=== PATIENT | female | born 1940 | race Caucasian/White ===

== ENCOUNTER → 2017-07-03 | Outpatient (CLI) | payer MEDICARE, OTHER ==
[~2017-07-03] MED LIST: ASCO500 PO; ATOR10 PO; AZIT250 PO; BACL10 PO; BENZ100A PO; CHOL10002 PO; COLLAGEN PLUS; CYAN100 PO; CYAN1000 PO; ENOX80I SQ; ERGO400 PO; ESCI10 PO; FISH1000 PO; FLAX PO; GLIP2.5ER; GLIP5 PO; HYDACE5 PO; IBUP200; LISI10 PO; LISI5 PO; LOSA25 PO; METF500 PO; METF500C PO; METO100ER PO; METO25ER; METO50 PO; NAPR500EC PO; Naproxen375 MG PO; OXYACE5T PO; OXYGEN 2L; TOCO400 PO; UBID100 PO; WARF1 PO; WARF10 PO; WARF4 PO; [UNRECOGNIZED DRUG - OTHER]; [UNRECOGNIZED DRUG - OTHER]
== END ==
LOC: LAB SHORT 15:18 → OLS 15:18
DX: I48.0 Paroxysmal atrial fibrillation (principal)
CPT/HCPCS: 36416; 85610

== ENCOUNTER → 2018-06-04 | Outpatient (CLI) | payer MEDICARE, OTHER ==
[2018-06-05 09:15] LABS: Source, Urine Clean Catch
[2018-06-05 12:38] LABS: Bilirubin, Urine Neg (Neg); Blood, Urine 2+ (Neg); Glucose Qualitative, Urine Neg (Neg); Ketones, Urine Neg (Neg); Leukocyte Esterase, Urine 3+ (Neg); Nitrite, Urine Pos (Neg); Protein, Urine 2+ (Neg); Urobilinogen, Urine NORM (Normal)
[2018-06-05 13:03] LABS: Appearance, Urine Clear (Clear); Color, Urine Yellow (P-Yellow)
[2018-06-05 13:09] LABS: Bacteria Mod /hpf; Squamous Epithelial Cells Mod /hpf (Few); Transitional Epithelial Cells Rare /hpf (0-Rare)
[2018-06-05 13:11] LABS: White Blood Cells, Urine 25-50 /hpf (0-5)
== END | disposition home or self-care (01) ==
LOC: LAB 17:59 → LAB SHORT 17:59 → LAB FUT 07-22 17:40
PROVIDERS: Family Medicine
DX: N39.0 Urinary tract infection, site not specified (principal); R10.2 Pelvic and perineal pain
CPT/HCPCS: 81001; 87077; 87086; 87186

== ENCOUNTER → 2018-08-25 | Outpatient (CLI) | payer MEDICARE, OTHER ==
[2018-08-25 15:38] LABS: Source, Urine Clean Catch
[2018-08-25 17:29] LABS: Bilirubin, Urine Neg (Neg); Blood, Urine 2+ (Neg); Glucose Qualitative, Urine 2+ (Neg); Ketones, Urine Neg (Neg); Leukocyte Esterase, Urine 3+ (Neg); Nitrite, Urine Pos (Neg); Protein, Urine 2+ (Neg); Urobilinogen, Urine NORM (Normal)
[2018-08-25 17:41] LABS: Appearance, Urine Cloudy (Clear); Color, Urine Yellow (P-Yellow)
[2018-08-25 17:42] LABS: White Blood Cells, Urine TNTC /hpf (0-5)
[2018-08-25 17:43] LABS: Bacteria Many /hpf; Squamous Epithelial Cells Mod /hpf (Few)
== END | disposition home or self-care (01) ==
LOC: LAB SHORT 15:38 → LAB 15:38 → LAB FUT 08-22 14:55 → EDSTATUS 08-22 14:55
PROVIDERS: Family Medicine
DX: N39.0 Urinary tract infection, site not specified (principal)
CPT/HCPCS: 81001

== ENCOUNTER 2018-10-05 14:39 | Emergency (ER) | payer MEDICARE, OTHER ==
[~2018-10-05] VITALS: Ht 162.6 cm; Wt 86.2 kg
[2018-10-05 15:19] LABS: BASOPHILS ABSOLUTE AUTO 0.05 K/mm3 (0.00-0.23); BASOPHILS PERCENT AUTO 1 % (0-2); EOSINOPHILS ABSOLUTE AUTO 0.17 K/mm3 (0.00-0.68); EOSINOPHILS PERCENT AUTO 2 % (0-6); Hematocrit 42.8 % (33.0-51.0); Hemoglobin 14.1 g/dL (11.5-16.0); IMMATURE GRAN ABSOLUTE AUTO 0.06 K/mm3 (0.00-0.10); IMMATURE GRAN PERCENT AUTO 1 % (0-1); LYMPHOCYTES ABSOLUTE AUTO 3.01 K/mm3 (0.84-5.20); LYMPHOCYTES PERCENT AUTO 30 % (21-46); MONOCYTES ABSOLUTE AUTO 0.76 K/mm3 (0.16-1.47); MONOCYTES PERCENT AUTO 8 % (4-13); Mean Corpuscular HGB Conc 32.9 g/dL (31.5-36.5); Mean Corpuscular Volume 88 fL (80-100); Mean Platelet Volume 10.7 fL (9.1-12.4); NEUTROPHILS ABSOLUTE AUTO 5.91 K/mm3 (1.96-9.15); NEUTROPHILS PERCENT AUTO 59 % (41-73); Platelet Count 264 K/mm3 (150-400); RDW Coefficient Variation 13.5 % (11.7-14.2); RDW Standard Deviation 43.8 fL (35.1-46.3); Red Blood Cell Count 4.86 M/mm3 (3.80-5.20); White Blood Cell Count 9.96 K/mm3 (4.00-11.30)
[2018-10-05 15:35] LABS: Alanine Aminotransfer (ALT/SGP 36 U/L (12-78); Albumin, Blood 3.7 g/dL (3.4-5.0); Albumin/Globulin Ratio 0.8 (0.8-1.8); Alk Phos 96 U/L (50-136); Anion Gap 8 mmol/L (6-16); Aspartate Aminotrans (AST/SGOT 29 U/L (12-37); Bilirubin, Total 0.5 mg/dL (0.1-1.0); Blood Urea Nitrogen 10 mg/dL (8-24); Bun/Creatinine Ratio 15.9 (12.0-20.0); CO2, Blood 25 mmol/L (21-32); Calcium, Blood 9.3 mg/dL (8.5-10.1); Chloride, Blood 105 mmol/L (98-108); Creatinine, Blood 0.63 mg/dL (0.40-1.00); Globulin, Blood 4.4 g/dL (2.2-4.0); Glomerular Filtration Rate >60 (60-); Glucose, Blood 134 mg/dL (70-99); Potassium, Blood 4.2 mmol/L (3.5-5.5); Sodium, Blood 138 mmol/L (136-145); Total Protein, Blood 8.1 g/dL (6.4-8.2)
[2018-10-05 15:39] LABS: Troponin I <0.015 ng/mL (0.000-0.040)
[2018-10-05 16:16] LABS: Source, Urine Clean Catch
[2018-10-05 16:22] LABS: Bilirubin, Urine Neg (Neg); Blood, Urine 1+ (Neg); Glucose Qualitative, Urine Neg (Neg); Ketones, Urine Neg (Neg); Leukocyte Esterase, Urine 1+ (Neg); Nitrite, Urine Neg (Neg); Protein, Urine 1+ (Neg); Specific Gravity, Urine 1.005 (1.003-1.022); Urobilinogen, Urine NORM (Normal)
[2018-10-05 16:27] LABS: Appearance, Urine Clear (Clear); Color, Urine Yellow (P-Yellow)
[2018-10-05 16:28] LABS: Bacteria Few /hpf; Squamous Epithelial Cells Few /hpf (Few)
[2018-10-05] MEDS ORDERED: Norco 5-325 Ta1 EACH PO (17:40)
== END 2018-10-05 18:08 | disposition home or self-care (01) ==
LOC: ER 14:39
PROVIDERS: Physician Assistant
DX: K80.20 Calculus of gallbladder without cholecystitis without obstruction (principal); Z88.0 Allergy status to penicillin; Z88.5 Allergy status to narcotic agent; Z91.011 Allergy to milk products; Z79.899 Other long term (current) drug therapy; Z79.01 Long term (current) use of anticoagulants; Z79.84 Long term (current) use of oral hypoglycemic drugs; Z86.73 Personal history of transient ischemic attack (TIA), and cerebral infarction without residual deficits; I48.91 Unspecified atrial fibrillation; E11.9 Type 2 diabetes mellitus without complications
CPT/HCPCS: 36415; 74177; 80053; 81001; 83690; 84484; 85025; 87086; 93005; 93010; 99284-25; Q9967

== ENCOUNTER → 2018-12-24 | Outpatient (CLI) | payer MEDICARE, OTHER ==
[~2018-12-24] MED LIST changes: +Norco 5-325 Ta1 EACH PO
[2018-12-24 19:18] LABS: Creatinine, Urine Random 66.3 mg/dL (27.00-270.00)
[2018-12-24 19:20] LABS: Microalb/Creat Ratio UR, Rand 159.879 mg/g (0.000-30.000)
[2018-12-28 13:09] LABS: International Normalized Ratio 2.89; Prothrombin Time Results 27.8 Sec (9.7-11.5)
== END | disposition home or self-care (01) ==
LOC: LAB 18:21 → LAB SHORT 18:21
PROVIDERS: Nurse Practitioner Family
DX: E11.9 Type 2 diabetes mellitus without complications (principal); I48.2 Chronic atrial fibrillation
CPT/HCPCS: 82043; 82570; 85610

== ENCOUNTER → 2019-01-20 | Outpatient (CLI) | payer MEDICARE, OTHER | END | disposition home or self-care (01) | LOC: LAB SHORT 17:49 → LAB 17:49 | DX: E11.9 Type 2 diabetes mellitus without complications (principal) ==

== ENCOUNTER 2019-07-01 16:21 | Emergency (ER) | payer MEDICARE, OTHER ==
[~2019-07-01] VITALS: Ht 160 cm; Wt 86.2 kg
[2019-07-01 18:04] LABS: BASOPHILS ABSOLUTE AUTO 0.08 K/mm3 (0.00-0.23); BASOPHILS PERCENT AUTO 1 % (0-2); EOSINOPHILS ABSOLUTE AUTO 0.19 K/mm3 (0.00-0.68); EOSINOPHILS PERCENT AUTO 2 % (0-6); Hematocrit 49.8 % (33.0-51.0); Hemoglobin 15.5 g/dL (11.5-16.0); IMMATURE GRAN ABSOLUTE AUTO 0.06 K/mm3 (0.00-0.10); IMMATURE GRAN PERCENT AUTO 1 % (0-1); LYMPHOCYTES ABSOLUTE AUTO 3.59 K/mm3 (0.84-5.20); LYMPHOCYTES PERCENT AUTO 29 % (21-46); MONOCYTES ABSOLUTE AUTO 0.87 K/mm3 (0.16-1.47); MONOCYTES PERCENT AUTO 7 % (4-13); Mean Corpuscular HGB 28.7 pg (26.0-34.0); Mean Corpuscular HGB Conc 31.1 g/dL (31.5-36.5); Mean Corpuscular Volume 92 fL (80-100); NEUTROPHILS ABSOLUTE AUTO 7.41 K/mm3 (1.96-9.15); NEUTROPHILS PERCENT AUTO 61 % (41-73); Platelet Count 209 K/mm3 (150-400); RDW Coefficient Variation 13.1 % (11.7-14.2); RDW Standard Deviation 44.3 fL (35.1-46.3)
[2019-07-01 18:19] LABS: International Normalized Ratio 3.23; Prothrombin Time Results 32.3 Sec (9.7-11.5)
[2019-07-01 18:24] LABS: Alanine Aminotransfer (ALT/SGP 26 U/L (12-78); Albumin, Blood 3.2 g/dL (3.4-5.0); Albumin/Globulin Ratio 0.7 (0.8-1.8); Alk Phos 134 U/L (50-136); Anion Gap 6 mmol/L (6-16); Aspartate Aminotrans (AST/SGOT 28 U/L (12-37); Bilirubin, Total 0.6 mg/dL (0.1-1.0); Blood Urea Nitrogen 16 mg/dL (8-24); Bun/Creatinine Ratio 33.1 (12.0-20.0); CO2, Blood 25 mmol/L (21-32); Calcium, Blood 9.1 mg/dL (8.5-10.1); Chloride, Blood 105 mmol/L (98-108); Creatinine, Blood 0.48 mg/dL (0.40-1.00); Globulin, Blood 4.7 g/dL (2.2-4.0); Glomerular Filtration Rate >60 (60-); Glucose, Blood 280 mg/dL (70-99); Potassium, Blood 4.4 mmol/L (3.5-5.5); Sodium, Blood 136 mmol/L (136-145); Total Protein, Blood 7.9 g/dL (6.4-8.2)
[2019-07-01 18:28] LABS: Source, Urine Clean Catch
[2019-07-01 18:31] LABS: Bilirubin, Urine Neg (Neg); Blood, Urine 3+ (Neg); Glucose Qualitative, Urine 4+ (Neg); Ketones, Urine Neg (Neg); Leukocyte Esterase, Urine Neg (Neg); Nitrite, Urine Neg (Neg); Protein, Urine 3+ (Neg); Urobilinogen, Urine NORM (Normal)
[2019-07-01 18:41] LABS: Appearance, Urine Clear (Clear); Color, Urine Yellow (P-Yellow)
[2019-07-01 18:42] LABS: Bacteria Few /hpf; Squamous Epithelial Cells Mod /hpf (Few); White Blood Cells, Urine 0-2 /hpf (0-5)
[2019-07-01 19:17] LABS: Source, Urine Catheter
[2019-07-01 19:21] LABS: Bilirubin, Urine Neg (Neg); Blood, Urine 3+ (Neg); Glucose Qualitative, Urine 4+ (Neg); Ketones, Urine Neg (Neg); Leukocyte Esterase, Urine Neg (Neg); Nitrite, Urine Neg (Neg); Protein, Urine 3+ (Neg); Urobilinogen, Urine NORM (Normal)
[2019-07-01 19:35] LABS: Appearance, Urine Clear (Clear); Color, Urine Yellow (P-Yellow)
[2019-07-01 19:36] LABS: Bacteria Few /hpf; Red Blood Cells, Urine 0-2 /hpf (0-2); Squamous Epithelial Cells Rare /hpf (Few); White Blood Cells, Urine 0-2 /hpf (0-5)
== END 2019-07-01 20:33 | disposition home or self-care (01) ==
LOC: ER 16:21
PROVIDERS: Emergency Medicine
DX: M54.5 Low back pain (principal); G89.29 Other chronic pain; I48.20 Chronic atrial fibrillation, unspecified; E11.9 Type 2 diabetes mellitus without complications; I10 Essential (primary) hypertension; E78.5 Hyperlipidemia, unspecified; F32.9 Major depressive disorder, single episode, unspecified; Z88.0 Allergy status to penicillin; Z88.5 Allergy status to narcotic agent; Z88.8 Allergy status to other drugs, medicaments and biological substances; Z91.011 Allergy to milk products; Z79.899 Other long term (current) drug therapy; Z79.01 Long term (current) use of anticoagulants; Z79.84 Long term (current) use of oral hypoglycemic drugs; Z86.73 Personal history of transient ischemic attack (TIA), and cerebral infarction without residual deficits
CPT/HCPCS: 36415; 51701; 74176; 80053; 81001; 85025; 85610; 99284-25

== ENCOUNTER → 2019-08-18 | Outpatient (CLI) | payer MEDICARE, OTHER ==
[2019-08-18 17:55] LABS: BASOPHILS ABSOLUTE AUTO 0.03 K/mm3 (0.00-0.23); BASOPHILS PERCENT AUTO 0 % (0-2); EOSINOPHILS ABSOLUTE AUTO 0.16 K/mm3 (0.00-0.68); EOSINOPHILS PERCENT AUTO 2 % (0-6); Hematocrit 44.8 % (33.0-51.0); Hemoglobin 14.7 g/dL (11.5-16.0); IMMATURE GRAN ABSOLUTE AUTO 0.04 K/mm3 (0.00-0.10); IMMATURE GRAN PERCENT AUTO 0 % (0-1); LYMPHOCYTES ABSOLUTE AUTO 2.88 K/mm3 (0.84-5.20); LYMPHOCYTES PERCENT AUTO 30 % (21-46); MONOCYTES ABSOLUTE AUTO 0.82 K/mm3 (0.16-1.47); MONOCYTES PERCENT AUTO 9 % (4-13); Mean Corpuscular HGB 28.9 pg (26.0-34.0); Mean Corpuscular HGB Conc 32.8 g/dL (31.5-36.5); Mean Corpuscular Volume 88 fL (80-100); Mean Platelet Volume 11.4 fL (9.1-12.4); NEUTROPHILS ABSOLUTE AUTO 5.63 K/mm3 (1.96-9.15); NEUTROPHILS PERCENT AUTO 59 % (41-73); Platelet Count 255 K/mm3 (150-400); RDW Coefficient Variation 13.1 % (11.7-14.2); Red Blood Cell Count 5.08 M/mm3 (3.80-5.20); White Blood Cell Count 9.56 K/mm3 (4.00-11.30)
[2019-08-18 18:26] LABS: Alanine Aminotransfer (ALT/SGP 28 U/L (12-78); Albumin, Blood 3.2 g/dL (3.4-5.0); Albumin/Globulin Ratio 0.7 (0.8-1.8); Alk Phos 134 U/L (50-136); Anion Gap 8 mmol/L (6-16); Aspartate Aminotrans (AST/SGOT 23 U/L (12-37); Bilirubin, Total 0.6 mg/dL (0.1-1.0); Blood Urea Nitrogen 16 mg/dL (8-24); Bun/Creatinine Ratio 25.8 (12.0-20.0); CHOL/HDL RATIO 2.8; CO2, Blood 26 mmol/L (21-32); Calcium, Blood 9.2 mg/dL (8.5-10.1); Chloride, Blood 101 mmol/L (98-108); Cholesterol 150 mg/dL (50-200); Creatinine, Blood 0.62 mg/dL (0.40-1.00); Globulin, Blood 4.6 g/dL (2.2-4.0); Glomerular Filtration Rate >60 (60-); Glucose, Blood 278 mg/dL (70-99); HDL Cholesterol 54 mg/dL (>39); LDL/HDL RATIO 1.3; Low Density Lipoprotein Chol 68 mg/dL (0-110); Sodium, Blood 135 mmol/L (136-145); Total Protein, Blood 7.8 g/dL (6.4-8.2); Triglycerides 142 mg/dL (30-160); Very Low Density Lipoprot Chol 28 mg/dL (6-32)
[2019-08-18 18:29] LABS: LDL Direct Measurement 74 mg/dL (0-130)
[2019-08-18 18:36] LABS: Appearance, Urine Clear (Clear); Bilirubin, Urine Neg (Neg); Blood, Urine 2+ (Neg); Color, Urine Amber (P-Yellow); Glucose Qualitative, Urine 4+ (Neg); Ketones, Urine Neg (Neg); Leukocyte Esterase, Urine 1+ (Neg); Nitrite, Urine Neg (Neg); Protein, Urine 3+ (Neg); Specific Gravity, Urine 1.025 (1.003-1.022); Urobilinogen, Urine NORM (Normal)
[2019-08-18 18:59] LABS: Bacteria Not Seen /hpf; Squamous Epithelial Cells Mod /hpf (Few)
[2019-08-18 19:00] LABS: Mucus Light (0-Heavy); Red Blood Cells, Urine 0-2 /hpf (0-2); White Blood Cells, Urine 0-2 /hpf (0-5)
[2019-08-18 20:31] LABS: Microalb/Creat Ratio UR, Rand 415.19 mg/g (0.000-30.000)
== END | disposition home or self-care (01) ==
LOC: LAB SHORT 15:00 → LAB 15:00
PROVIDERS: Nurse Practitioner Family
DX: E11.9 Type 2 diabetes mellitus without complications (principal); E78.2 Mixed hyperlipidemia
CPT/HCPCS: 80053; 80061; 81001; 82043; 82570; 83036; 83721; 85025; 87086

== ENCOUNTER → 2019-12-01 | Outpatient (CLI) | payer MEDICARE, OTHER ==
[2019-12-01 18:21] LABS: International Normalized Ratio 2.47; Prothrombin Time Results 25.1 Sec (9.7-11.5)
== END | disposition home or self-care (01) ==
LOC: LAB SHORT 16:32 → PLD 16:32
PROVIDERS: Nurse Practitioner Family
DX: I48.20 Chronic atrial fibrillation, unspecified (principal)
CPT/HCPCS: 85610

== ENCOUNTER → 2019-12-30 | Outpatient (CLI) | payer MEDICARE, OTHER ==
[2019-12-30 18:17] LABS: BASOPHILS ABSOLUTE AUTO 0.06 K/mm3 (0.00-0.23); BASOPHILS PERCENT AUTO 1 % (0-2); EOSINOPHILS ABSOLUTE AUTO 0.09 K/mm3 (0.00-0.68); EOSINOPHILS PERCENT AUTO 1 % (0-6); Hematocrit 44.8 % (33.0-51.0); Hemoglobin 14.8 g/dL (11.5-16.0); IMMATURE GRAN ABSOLUTE AUTO 0.05 K/mm3 (0.00-0.10); IMMATURE GRAN PERCENT AUTO 0 % (0-1); LYMPHOCYTES ABSOLUTE AUTO 3.07 K/mm3 (0.84-5.20); LYMPHOCYTES PERCENT AUTO 25 % (21-46); MONOCYTES ABSOLUTE AUTO 0.88 K/mm3 (0.16-1.47); MONOCYTES PERCENT AUTO 7 % (4-13); Mean Corpuscular HGB 29.2 pg (26.0-34.0); Mean Corpuscular Volume 89 fL (80-100); Mean Platelet Volume 11.5 fL (9.1-12.4); NEUTROPHILS PERCENT AUTO 66 % (41-73); Platelet Count 236 K/mm3 (150-400); RDW Coefficient Variation 12.7 % (11.7-14.2); RDW Standard Deviation 41.2 fL (35.1-46.3); Red Blood Cell Count 5.06 M/mm3 (3.80-5.20); White Blood Cell Count 12.25 K/mm3 (4.00-11.30)
[2019-12-30 18:29] LABS: International Normalized Ratio 2.25
[2019-12-30 19:16] LABS: Alanine Aminotransfer (ALT/SGP 30 U/L (12-78); Albumin, Blood 3.2 g/dL (3.4-5.0); Albumin/Globulin Ratio 0.7 (0.8-1.8); Alk Phos 126 U/L (50-136); Anion Gap 7 mmol/L (6-16); Aspartate Aminotrans (AST/SGOT 25 U/L (12-37); Blood Urea Nitrogen 16 mg/dL (8-24); CO2, Blood 27 mmol/L (21-32); Calcium, Blood 9.5 mg/dL (8.5-10.1); Chloride, Blood 105 mmol/L (98-108); Creatinine, Blood 0.67 mg/dL (0.40-1.00); Globulin, Blood 4.6 g/dL (2.2-4.0); Glomerular Filtration Rate >60 (60-); Glucose, Blood 291 mg/dL (70-99); Potassium, Blood 4.1 mmol/L (3.5-5.5); Sodium, Blood 139 mmol/L (136-145); Total Protein, Blood 7.8 g/dL (6.4-8.2)
== END | disposition home or self-care (01) ==
LOC: LAB SHORT 16:35 → LAB 16:35
PROVIDERS: Nurse Practitioner Family
DX: I48.20 Chronic atrial fibrillation, unspecified (principal); E11.9 Type 2 diabetes mellitus without complications
CPT/HCPCS: 80053; 83036; 85025; 85610

== ENCOUNTER → 2020-01-26 | Outpatient (CLI) | payer MEDICARE, OTHER ==
[2020-01-26 19:13] LABS: Appearance, Urine Hazy (Clear); Bilirubin, Urine Neg (Neg); Blood, Urine 1+ (Neg); Color, Urine Yellow (P-Yellow); Glucose Qualitative, Urine 4+ (Neg); Ketones, Urine Neg (Neg); Leukocyte Esterase, Urine 3+ (Neg); Nitrite, Urine Pos (Neg); Protein, Urine 3+ (Neg); Urobilinogen, Urine NORM (Normal)
[2020-01-26 19:22] LABS: Bacteria Many /hpf; Squamous Epithelial Cells Many /hpf (Few); White Blood Cells, Urine TNTC /hpf (0-5)
== END ==
LOC: LAB SHORT 18:07 → LAB 18:07
PROVIDERS: Nurse Practitioner Family
DX: N95.2 Postmenopausal atrophic vaginitis (principal)
CPT/HCPCS: 81001; 87070; 87077; 87086; 87186; 87205

== ENCOUNTER → 2020-02-17 | Outpatient (CLI) | payer MEDICARE, OTHER ==
[~2020-02-17] MED LIST changes: +CEPH500 PO; +Pyridium200 MG PO
[2020-02-17 18:08] LABS: BASOPHILS ABSOLUTE AUTO 0.04 K/mm3 (0.00-0.23); BASOPHILS PERCENT AUTO 0 % (0-2); EOSINOPHILS PERCENT AUTO 1 % (0-6); Hematocrit 43.7 % (33.0-51.0); Hemoglobin 14.1 g/dL (11.5-16.0); IMMATURE GRAN ABSOLUTE AUTO 0.06 K/mm3 (0.00-0.10); IMMATURE GRAN PERCENT AUTO 1 % (0-1); LYMPHOCYTES ABSOLUTE AUTO 2.19 K/mm3 (0.84-5.20); LYMPHOCYTES PERCENT AUTO 21 % (21-46); MONOCYTES ABSOLUTE AUTO 0.69 K/mm3 (0.16-1.47); MONOCYTES PERCENT AUTO 7 % (4-13); Mean Corpuscular HGB 28.4 pg (26.0-34.0); Mean Corpuscular HGB Conc 32.3 g/dL (31.5-36.5); Mean Corpuscular Volume 88 fL (80-100); Mean Platelet Volume 11.3 fL (9.1-12.4); NEUTROPHILS ABSOLUTE AUTO 7.51 K/mm3 (1.96-9.15); NEUTROPHILS PERCENT AUTO 71 % (41-73); Platelet Count 231 K/mm3 (150-400); RDW Coefficient Variation 12.9 % (11.7-14.2); RDW Standard Deviation 41.7 fL (35.1-46.3); Red Blood Cell Count 4.96 M/mm3 (3.80-5.20); White Blood Cell Count 10.59 K/mm3 (4.00-11.30)
[2020-02-17 18:25] LABS: Alanine Aminotransfer (ALT/SGP 25 U/L (12-78); Albumin/Globulin Ratio 0.7 (0.8-1.8); Alk Phos 136 U/L (50-136); Anion Gap 4 mmol/L (6-16); Aspartate Aminotrans (AST/SGOT 18 U/L (12-37); Bilirubin, Total 0.7 mg/dL (0.1-1.0); Blood Urea Nitrogen 15 mg/dL (8-24); Bun/Creatinine Ratio 24.9 (12.0-20.0); CO2, Blood 30 mmol/L (21-32); Calcium, Blood 8.8 mg/dL (8.5-10.1); Chloride, Blood 101 mmol/L (98-108); Globulin, Blood 4.4 g/dL (2.2-4.0); Glomerular Filtration Rate >60 (60-); Glucose, Blood 309 mg/dL (70-99); Potassium, Blood 4.2 mmol/L (3.5-5.5); Sodium, Blood 135 mmol/L (136-145); Total Protein, Blood 7.4 g/dL (6.4-8.2)
[2020-02-17 18:40] LABS: CHOL/HDL RATIO 3.1; Cholesterol 149 mg/dL (50-200); HDL Cholesterol 48 mg/dL (>39); LDL/HDL RATIO 1.3; Low Density Lipoprotein Chol 64 mg/dL (0-110); Triglycerides 184 mg/dL (30-160); Very Low Density Lipoprot Chol 36 mg/dL (6-32)
== END | disposition home or self-care (01) ==
LOC: LAB SHORT 16:44 → LAB 16:44
PROVIDERS: Nurse Practitioner Family
DX: E11.9 Type 2 diabetes mellitus without complications (principal); R39.9 Unspecified symptoms and signs involving the genitourinary system
CPT/HCPCS: 80053; 80061; 83036; 85025

== ENCOUNTER → 2020-02-23 | Outpatient (CLI) | payer MEDICARE, OTHER ==
[2020-02-23 16:21] LABS: Source, Urine Clean Catch
[2020-02-23 17:12] LABS: Appearance, Urine Clear (Clear); Bilirubin, Urine Neg (Neg); Blood, Urine 2+ (Neg); Color, Urine Yellow (P-Yellow); Glucose Qualitative, Urine 4+ (Neg); Ketones, Urine Neg (Neg); Leukocyte Esterase, Urine Neg (Neg); Nitrite, Urine Neg (Neg); Protein, Urine 2+ (Neg); Specific Gravity, Urine 1.015 (1.003-1.022); Urobilinogen, Urine NORM (Normal)
[2020-02-23 17:29] LABS: Bacteria Rare /hpf; Squamous Epithelial Cells Rare /hpf (Few); White Blood Cells, Urine Not Seen /hpf (0-5)
== END | disposition home or self-care (01) ==
LOC: LAB SHORT 16:17 → LAB 16:17
PROVIDERS: Nurse Practitioner Family
DX: E11.9 Type 2 diabetes mellitus without complications (principal); R39.9 Unspecified symptoms and signs involving the genitourinary system
CPT/HCPCS: 81001; 82043

== ENCOUNTER 2020-03-05 09:24 | Emergency (ER) | payer MEDICARE, OTHER ==
[~2020-03-05] VITALS: Ht 162.6 cm; Wt 86.2 kg
[~2020-03-05 09:24] MED LIST changes: -CEPH500 PO; -Pyridium200 MG PO
[2020-03-05 09:57] LABS: BASOPHILS ABSOLUTE AUTO 0.03 K/mm3 (0.00-0.23); BASOPHILS PERCENT AUTO 0 % (0-2); EOSINOPHILS ABSOLUTE AUTO 0.01 K/mm3 (0.00-0.68); EOSINOPHILS PERCENT AUTO 0 % (0-6); Hematocrit 38.8 % (33.0-51.0); Hemoglobin 12.9 g/dL (11.5-16.0); IMMATURE GRAN ABSOLUTE AUTO 0.09 K/mm3 (0.00-0.10); IMMATURE GRAN PERCENT AUTO 1 % (0-1); LYMPHOCYTES ABSOLUTE AUTO 0.93 K/mm3 (0.84-5.20); LYMPHOCYTES PERCENT AUTO 6 % (21-46); MONOCYTES ABSOLUTE AUTO 1.13 K/mm3 (0.16-1.47); MONOCYTES PERCENT AUTO 8 % (4-13); Mean Corpuscular HGB 29.3 pg (26.0-34.0); Mean Corpuscular HGB Conc 33.2 g/dL (31.5-36.5); Mean Corpuscular Volume 88 fL (80-100); Mean Platelet Volume 10.7 fL (9.1-12.4); NEUTROPHILS ABSOLUTE AUTO 12.65 K/mm3 (1.96-9.15); NEUTROPHILS PERCENT AUTO 85 % (41-73); Platelet Count 187 K/mm3 (150-400); Red Blood Cell Count 4.41 M/mm3 (3.80-5.20); White Blood Cell Count 14.84 K/mm3 (4.00-11.30)
[2020-03-05 10:16] LABS: Alanine Aminotransfer (ALT/SGP 26 U/L (12-78); Albumin, Blood 2.5 g/dL (3.4-5.0); Albumin/Globulin Ratio 0.6 (0.8-1.8); Alk Phos 123 U/L (50-136); Anion Gap 8 mmol/L (6-16); Aspartate Aminotrans (AST/SGOT 35 U/L (12-37); Bilirubin, Total 1.2 mg/dL (0.1-1.0); Blood Urea Nitrogen 14 mg/dL (8-24); Bun/Creatinine Ratio 19.2 (12.0-20.0); CO2, Blood 24 mmol/L (21-32); Calcium, Blood 8.1 mg/dL (8.5-10.1); Chloride, Blood 98 mmol/L (98-108); Creatinine, Blood 0.73 mg/dL (0.40-1.00); Globulin, Blood 4.4 g/dL (2.2-4.0); Glomerular Filtration Rate >60 (60-); Glucose, Blood 320 mg/dL (70-99); Potassium, Blood 3.9 mmol/L (3.5-5.5); Sodium, Blood 130 mmol/L (136-145); Total Protein, Blood 6.9 g/dL (6.4-8.2)
[2020-03-05 10:55] LABS: Source, Urine Clean Catch
[2020-03-05 11:00] LABS: Bilirubin, Urine Neg (Neg); Blood, Urine 4+ (Neg); Glucose Qualitative, Urine 4+ (Neg); Ketones, Urine 1+ (Neg); Leukocyte Esterase, Urine 3+ (Neg); Nitrite, Urine Pos (Neg); Protein, Urine 3+ (Neg); Specific Gravity, Urine 1.015 (1.003-1.022); Urobilinogen, Urine NORM (Normal)
[2020-03-05 11:17] LABS: Appearance, Urine Hazy (Clear); Color, Urine Yellow (P-Yellow)
[2020-03-05 11:22] LABS: Bacteria Many /hpf; Squamous Epithelial Cells Many /hpf (Few); White Blood Cells, Urine TNTC /hpf (0-5)
[2020-03-05] MEDS ORDERED: CEPH500 PO (11:39)
[2020-03-05] MEDS ORDERED: Pyridium200 MG PO (11:39)
== END 2020-03-05 11:54 | disposition home or self-care (01) ==
LOC: ER 09:24
PROVIDERS: Physician Assistant
DX: N39.0 Urinary tract infection, site not specified (principal); I48.20 Chronic atrial fibrillation, unspecified; E11.9 Type 2 diabetes mellitus without complications; I10 Essential (primary) hypertension; E78.5 Hyperlipidemia, unspecified; F32.9 Major depressive disorder, single episode, unspecified; Z88.0 Allergy status to penicillin; Z88.5 Allergy status to narcotic agent; Z88.6 Allergy status to analgesic agent; Z91.011 Allergy to milk products; Z79.01 Long term (current) use of anticoagulants; Z79.84 Long term (current) use of oral hypoglycemic drugs; Z79.899 Other long term (current) drug therapy; Z86.73 Personal history of transient ischemic attack (TIA), and cerebral infarction without residual deficits
CPT/HCPCS: 36415; 80053; 81001; 85025; 87077; 87086; 87186; 99283; A9270-GY

== ENCOUNTER → 2020-03-13 | Outpatient (CLI) | payer MEDICARE, OTHER ==
[~2020-03-13] MED LIST changes: +CEPH500 PO; -CHOL10002 PO; -CYAN1000 PO; +FISH OIL 1,2001 EAC7 PO; +FURO20 PO; +HYDR1TAB94 PO; +JANTOVEN2 MG; +JANTOVEN6 MG; +LEVEMIR FL100 UNIT/2 SC; +MELO7.5 PO; +Pyridium200 MG PO; +VITAMIN D32000 UNI1 PO; +Vitamin B-121000 MCG PO; +XARELTO20 MG PO; +ZOLOFT25 MG PO
[2020-03-13 18:06] LABS: Appearance, Urine Cloudy (Clear); Bilirubin, Urine Neg (Neg); Blood, Urine 2+ (Neg); Color, Urine Yellow (P-Yellow); Glucose Qualitative, Urine 3+ (Neg); Ketones, Urine 1+ (Neg); Leukocyte Esterase, Urine 1+ (Neg); Nitrite, Urine Neg (Neg); Protein, Urine 2+ (Neg); Urobilinogen, Urine NORM (Normal)
[2020-03-13 18:08] LABS: International Normalized Ratio 2.9; Prothrombin Time Results 29.2 Sec (9.7-11.5)
[2020-03-13 18:14] LABS: Bacteria Many /hpf
[2020-03-13 18:15] LABS: Red Blood Cells, Urine Not Seen /hpf (0-2); Squamous Epithelial Cells Many /hpf (Few)
[2020-03-13 18:24] LABS: Anion Gap 9 mmol/L (6-16); Blood Urea Nitrogen 14 mg/dL (8-24); Bun/Creatinine Ratio 18.4 (12.0-20.0); CO2, Blood 27 mmol/L (21-32); Chloride, Blood 98 mmol/L (98-108); Creatinine, Blood 0.76 mg/dL (0.40-1.00); Glomerular Filtration Rate >60 (60-); Glucose, Blood 266 mg/dL (70-99); Potassium, Blood 3.9 mmol/L (3.5-5.5); Sodium, Blood 134 mmol/L (136-145)
== END | disposition home or self-care (01) ==
LOC: LAB SHORT 16:27 → LAB 16:27
PROVIDERS: Nurse Practitioner Family
DX: E87.1 Hypo-osmolality and hyponatremia (principal); I48.20 Chronic atrial fibrillation, unspecified; R31.9 Hematuria, unspecified
CPT/HCPCS: 80048; 81001; 85610; 87086

== ENCOUNTER 2020-08-09 06:44 | Inpatient (IN) | payer MEDICARE, OTHER ==
[~2020-08-09] VITALS: Ht 162.6 cm; Wt 88.3 kg
[~2020-08-09 06:44] MED LIST changes: -FURO20 PO; -HYDR1TAB94 PO; -JANTOVEN2 MG; -JANTOVEN6 MG; -LEVEMIR FL100 UNIT/2 SC; -MELO7.5 PO; -XARELTO20 MG PO; -ZOLOFT25 MG PO
[2020-08-09 08:23] LABS: Source, Urine Clean Catch
[2020-08-09 08:32] LABS: BASOPHILS ABSOLUTE AUTO 0.05 K/mm3 (0.00-0.23); BASOPHILS PERCENT AUTO 0 % (0-2); EOSINOPHILS ABSOLUTE AUTO 0.01 K/mm3 (0.00-0.68); EOSINOPHILS PERCENT AUTO 0 % (0-6); Hematocrit 41.7 % (33.0-51.0); Hemoglobin 13.8 g/dL (11.5-16.0); IMMATURE GRAN ABSOLUTE AUTO 0.12 K/mm3 (0.00-0.10); IMMATURE GRAN PERCENT AUTO 1 % (0-1); LYMPHOCYTES ABSOLUTE AUTO 1.81 K/mm3 (0.84-5.20); LYMPHOCYTES PERCENT AUTO 12 % (21-46); MONOCYTES ABSOLUTE AUTO 0.47 K/mm3 (0.16-1.47); MONOCYTES PERCENT AUTO 3 % (4-13); Mean Corpuscular HGB 28.9 pg (26.0-34.0); Mean Corpuscular HGB Conc 33.1 g/dL (31.5-36.5); Mean Corpuscular Volume 87 fL (80-100); Mean Platelet Volume 11.3 fL (9.1-12.4); NEUTROPHILS ABSOLUTE AUTO 13.26 K/mm3 (1.96-9.15); NEUTROPHILS PERCENT AUTO 84 % (41-73); Platelet Count 224 K/mm3 (150-400); RDW Coefficient Variation 12.8 % (11.7-14.2); RDW Standard Deviation 40.8 fL (35.1-46.3); Red Blood Cell Count 4.78 M/mm3 (3.80-5.20); White Blood Cell Count 15.72 K/mm3 (4.00-11.30)
[2020-08-09 08:32] LABS: Appearance, Urine Clear (Clear); Bilirubin, Urine Neg (Neg); Blood, Urine 2+ (Neg); Color, Urine Yellow (P-Yellow); Glucose Qualitative, Urine 4+ (Neg); Ketones, Urine 3+ (Neg); Leukocyte Esterase, Urine 1+ (Neg); Nitrite, Urine Pos (Neg); Protein, Urine 3+ (Neg); Urobilinogen, Urine NORM (Normal)
[2020-08-09 08:45] LABS: Bacteria Mod /hpf; Mucus Light (0-Heavy); Red Blood Cells, Urine 0-2 /hpf (0-2); Squamous Epithelial Cells Few /hpf (Few); White Blood Cells, Urine 0-2 /hpf (0-5)
[2020-08-09 09:05] LABS: Alanine Aminotransfer (ALT/SGP 20 U/L (12-78); Albumin, Blood 3.3 g/dL (3.4-5.0); Albumin/Globulin Ratio 0.7 (0.8-1.8); Alk Phos 131 U/L (50-136); Anion Gap 7 mmol/L (6-16); Aspartate Aminotrans (AST/SGOT 13 U/L (12-37); Bilirubin, Total 0.7 mg/dL (0.1-1.0); Blood Urea Nitrogen 16 mg/dL (8-24); Bun/Creatinine Ratio 23.9 (12.0-20.0); CO2, Blood 28 mmol/L (21-32); Calcium, Blood 9.1 mg/dL (8.5-10.1); Chloride, Blood 97 mmol/L (98-108); Creatinine, Blood 0.67 mg/dL (0.40-1.00); Globulin, Blood 4.7 g/dL (2.2-4.0); Glomerular Filtration Rate >60 (60-); Glucose, Blood 298 mg/dL (70-99); Sodium, Blood 132 mmol/L (136-145); Troponin I <0.015 ng/mL (0.000-0.040)
[2020-08-09 10:04] LABS: International Normalized Ratio 2.39; Prothrombin Time Results 24.6 Sec (9.7-11.5)
[2020-08-09] MEDS ORDERED: ZOLOFT25 MG PO (11:48)
[2020-08-09] MEDS ORDERED: LEVEMIR FL100 UNIT/2 SC (11:48)
[2020-08-09] MEDS ORDERED: MELO7.5 PO (11:49)
[2020-08-09] MEDS ORDERED: GLIP5 PO (11:49)
[2020-08-09 11:50] LABS: SARS-Cov-2 (COVID-19) PCR, MMC NEGATIVE (NEGATIVE)
[2020-08-09] MEDS ORDERED: JANTOVEN2 MG (11:51)
[2020-08-09] MEDS ORDERED: JANTOVEN6 MG (11:52)
--- NOTE | 2020-08-09 12:15 | NUR ---
pt arrived to room 216 from er dept pt being admitted for acute asmi pt stated she had a episode last year and also found out she had a fatty liver since then has not had a episode started having pain and n/v during the night this am did not have her routine medications currently her abd pain is 3/10 and no nausea pt stated she is not having surgery due to being on a blood thinner diet ordered encouraged pt to stick with cl
--- NOTE | 2020-08-09 17:15 | NUR ---
pt awake req something to eat checked bs cl given to start still min pain no nausea at this time
--- NOTE | 2020-08-09 17:58 | NUR ---
NO ABD PAIN FROM THE CL PT SPOUSE DID BRING HER A PEAR HALF NO PAIN ALSO FROM THAT
[2020-08-10 04:11] LABS: BASOPHILS ABSOLUTE AUTO 0.04 K/mm3 (0.00-0.23); BASOPHILS PERCENT AUTO 0 % (0-2); EOSINOPHILS ABSOLUTE AUTO 0.05 K/mm3 (0.00-0.68); EOSINOPHILS PERCENT AUTO 0 % (0-6); Hematocrit 37.5 % (33.0-51.0); Hemoglobin 12.4 g/dL (11.5-16.0); IMMATURE GRAN ABSOLUTE AUTO 0.05 K/mm3 (0.00-0.10); IMMATURE GRAN PERCENT AUTO 0 % (0-1); LYMPHOCYTES ABSOLUTE AUTO 2.86 K/mm3 (0.84-5.20); LYMPHOCYTES PERCENT AUTO 25 % (21-46); MONOCYTES ABSOLUTE AUTO 0.85 K/mm3 (0.16-1.47); MONOCYTES PERCENT AUTO 7 % (4-13); Mean Corpuscular HGB 29.1 pg (26.0-34.0); Mean Corpuscular HGB Conc 33.1 g/dL (31.5-36.5); Mean Corpuscular Volume 88 fL (80-100); Mean Platelet Volume 10.8 fL (9.1-12.4); NEUTROPHILS ABSOLUTE AUTO 7.72 K/mm3 (1.96-9.15); NEUTROPHILS PERCENT AUTO 67 % (41-73); Platelet Count 208 K/mm3 (150-400); RDW Standard Deviation 41.8 fL (35.1-46.3); Red Blood Cell Count 4.26 M/mm3 (3.80-5.20); White Blood Cell Count 11.57 K/mm3 (4.00-11.30)
[2020-08-10 04:26] LABS: International Normalized Ratio 1.88; Prothrombin Time Results 19.6 Sec (9.7-11.5)
--- NOTE | 2020-08-10 04:26 | NUR ---
SHIFT SUMMARY: JUVENTINO IS A&OX4 WITH SOME MILD INTERMITTENT CONFUSION NOTED, SEEMS TO CORRELATE TO WHEN SHE FIRST AROUSES FROM SLEEP. VSS, NO ACUTE EVENTS OVERNIGHT. SHE HAS REPORTED NAUSEA TWICE DURING THE NIGHT AND REPORTS GOOD RELIEF WITH THE ZOFRAN. SHE HAS DENIED THE NEED FOR PAIN MEDICATION THIS SHIFT. IV PATENT. SHE STATED THAT SHE "LIVES ON" ANTIDIARRHEAL MEDICATION AT HOME D/T FREQUENT BOUTS OF DIARRHEA AND THAT SHE HAD A "MINI-STROKE" LAST WEEK AND HAS THEM OCCASIONALLY D/T THE A-FIB. SHE IS A ONE PERSON ASSIST TO THE BEDSIDE COMMODE. SHE IS LYING IN BED WITH THE CALL LIGHT IN REACH. WILL REPORT TO DAY SHIFT RN.
[2020-08-10 04:30] LABS: Alanine Aminotransfer (ALT/SGP 20 U/L (12-78); Albumin, Blood 2.8 g/dL (3.4-5.0); Albumin/Globulin Ratio 0.7 (0.8-1.8); Alk Phos 107 U/L (50-136); Anion Gap 4 mmol/L (6-16); Aspartate Aminotrans (AST/SGOT 17 U/L (12-37); Bilirubin, Total 0.7 mg/dL (0.1-1.0); Blood Urea Nitrogen 17 mg/dL (8-24); Bun/Creatinine Ratio 20.9 (12.0-20.0); CO2, Blood 29 mmol/L (21-32); Calcium, Blood 8.2 mg/dL (8.5-10.1); Chloride, Blood 102 mmol/L (98-108); Creatinine, Blood 0.82 mg/dL (0.40-1.00); Globulin, Blood 4.1 g/dL (2.2-4.0); Glomerular Filtration Rate >60 (60-); Glucose, Blood 225 mg/dL (70-99); Magnesium, Blood 1.6 mg/dL (1.6-2.4); Potassium, Blood 4.2 mmol/L (3.5-5.5); Sodium, Blood 135 mmol/L (136-145); Total Protein, Blood 6.9 g/dL (6.4-8.2)
[2020-08-10 12:54] LABS: International Normalized Ratio 1.7; Prothrombin Time Results 17.8 Sec (9.7-11.5)
--- NOTE | 2020-08-10 18:09 | NUR ---
SHIFT SUMMARY PATIENT ALERT AND ORIENTED THROUGHOUT SHIFT. SBA ASSIST TO BSC. REPORTS ABD PAIN 05/10. TOLERATING CLEARS AT THIS TIME. NPO AFTER MIDNIGHT. HEPARIN DRIP RUNNING. STOP AT 4:[address] CARDENAS. PLAN FOR LAP OLMAN TOMORROW 08/11/20. LEFT SIDED WEAKNESS DUE TO HX CVA.
[2020-08-11 04:20] LABS: BASOPHILS ABSOLUTE AUTO 0.04 K/mm3 (0.00-0.23); BASOPHILS PERCENT AUTO 0 % (0-2); EOSINOPHILS ABSOLUTE AUTO 0.14 K/mm3 (0.00-0.68); EOSINOPHILS PERCENT AUTO 1 % (0-6); Hematocrit 37.2 % (33.0-51.0); Hemoglobin 12.3 g/dL (11.5-16.0); IMMATURE GRAN ABSOLUTE AUTO 0.06 K/mm3 (0.00-0.10); IMMATURE GRAN PERCENT AUTO 1 % (0-1); LYMPHOCYTES PERCENT AUTO 37 % (21-46); MONOCYTES ABSOLUTE AUTO 0.78 K/mm3 (0.16-1.47); MONOCYTES PERCENT AUTO 7 % (4-13); Mean Corpuscular HGB 29.4 pg (26.0-34.0); Mean Corpuscular HGB Conc 33.1 g/dL (31.5-36.5); Mean Corpuscular Volume 89 fL (80-100); Mean Platelet Volume 11.2 fL (9.1-12.4); NEUTROPHILS ABSOLUTE AUTO 5.89 K/mm3 (1.96-9.15); NEUTROPHILS PERCENT AUTO 54 % (41-73); Platelet Count 200 K/mm3 (150-400); RDW Coefficient Variation 13.1 % (11.7-14.2); RDW Standard Deviation 42.6 fL (35.1-46.3); Red Blood Cell Count 4.18 M/mm3 (3.80-5.20); White Blood Cell Count 10.91 K/mm3 (4.00-11.30)
[2020-08-11 04:36] LABS: International Normalized Ratio 1.47; Prothrombin Time Results 15.5 Sec (9.7-11.5)
[2020-08-11 04:40] LABS: Anion Gap 3 mmol/L (6-16); Blood Urea Nitrogen 13 mg/dL (8-24); Bun/Creatinine Ratio 18.1 (12.0-20.0); CO2, Blood 29 mmol/L (21-32); Calcium, Blood 8.1 mg/dL (8.5-10.1); Chloride, Blood 105 mmol/L (98-108); Creatinine, Blood 0.72 mg/dL (0.40-1.00); Glomerular Filtration Rate >60 (60-); Glucose, Blood 167 mg/dL (70-99); Sodium, Blood 137 mmol/L (136-145)
--- NOTE | 2020-08-11 05:23 | NUR ---
SHIFT SUMMARY: JUVENTINO IS A&OX4. VSS, NO ACUTE EVENTS OVERNIGHT. SHE HAS HAD SEVERAL INCONTINENT BM AND STATES THAT SHE "LIVES ON" ANTIDIARRHEAL MEDICATIONS AT HOME. IV X 2 TO R FOREARM PATENT. SHE WAS MADE NPO AT MIDNIGHT, HEPARIN DRIP STOPPED AT 0425 [address] AM. [address]LE IN PLACE WITH A-FIB @ 56. SHE HAS DENIED PAIN. SHE IS A ONE PERSON ASSIST. SHE USES THE CALL LIGHT APPROPRIATELY. ATTENDS IN PLACE. SHE IS LYING IN BED WITH THE CALL LIGHT IN REACH. WILL REPORT TO DAY SHIFT RN.
--- NOTE | 2020-08-11 10:18 | NUR ---
History, Chart, Medications and Allergies reviewed before start of procedure.Lungs clear T/O to Auscultation, DECREASED THROUGHOUT. Patient confirms NPO status and agrees with scheduled surgery. HEPARIN OFF AT 0400, DOCTOR IS AWARE. UP TO BEDSIDE COMMODE X2 PRIOR TO SURGERY. UDN TREATMENT GIVEN BEFORE SURGERY. NEURO CHECK REVEALS LEFT SIDED UPPER EXTREMETY WEAKNESS AND LEFT SIDED FACIAL DROOP. OCCASIONALLY SLOW TO RESPOND TO QUESTIONS.
--- NOTE | 2020-08-11 19:21 | NUR ---
SHIFT SUMMARY PATIENT ALERT AND ORIENTED THROUGHOUT SHIFT. WENT FOR LAP OLMAN WITH DR CARDENAS THIS SHIFT. PATIENT DID WELL. LAP SITES X 4. TOLERATING SIPS OF CLEARS. PAIN MANAGED WITH IV PAIN MEDS. TELE FOR HX CVA AND AFIB. HEPARIN RUNNING AND MANAGED BY PHARMACY. FLUIDS AND ABX RUNNING. SBA TO COMMODE. REPORT GIVEN TO TOY DEPARTMENT MANAGER RN.
--- NOTE | 2020-08-12 06:09 | NUR ---
SHIFT SUMMARY POD1 LAP OLMAN, A/O X4, VSS W/ MILD/MODERATE BRADYCARDIA WHILE SLEEPING, PT APPEARS TO BE ASYMPTOMATIC AND REPORTS FEELING NORMAL WHEN WOKE UP AT THAT RATE, DEOS WELL W/ STAND PIVOT 1 PERSON SBA, ALSO DOES WELL AMBULATING W/ SAME SBA THOUGH DOES HAVE SLIGHT L SIDE WEAKNESS WHICH IS MORE PRONOUNCED IN HER L ARM, VOIDS FREQUENTLY BUT REPORTS THIS IS NORMAL FOR HER, TOLERATING PO, PAIN WELL MANAGED PER EMAR, NO ACUTE EVENTS THIS SHIFT. CALL LIGHT IN REACH, WILL CONTINUE TO MONITOR AND REPORT TO ONCOMING DAY RN.
[2020-08-12 06:26] LABS: BASOPHILS ABSOLUTE AUTO 0.03 K/mm3 (0.00-0.23); BASOPHILS PERCENT AUTO 0 % (0-2); EOSINOPHILS ABSOLUTE AUTO 0.07 K/mm3 (0.00-0.68); EOSINOPHILS PERCENT AUTO 1 % (0-6); Hematocrit 35.9 % (33.0-51.0); Hemoglobin 11.6 g/dL (11.5-16.0); IMMATURE GRAN ABSOLUTE AUTO 0.07 K/mm3 (0.00-0.10); IMMATURE GRAN PERCENT AUTO 1 % (0-1); LYMPHOCYTES ABSOLUTE AUTO 2.69 K/mm3 (0.84-5.20); LYMPHOCYTES PERCENT AUTO 26 % (21-46); MONOCYTES ABSOLUTE AUTO 0.82 K/mm3 (0.16-1.47); MONOCYTES PERCENT AUTO 8 % (4-13); Mean Corpuscular HGB Conc 32.3 g/dL (31.5-36.5); Mean Corpuscular Volume 90 fL (80-100); Mean Platelet Volume 11.1 fL (9.1-12.4); NEUTROPHILS ABSOLUTE AUTO 6.76 K/mm3 (1.96-9.15); NEUTROPHILS PERCENT AUTO 65 % (41-73); Platelet Count 167 K/mm3 (150-400); RDW Coefficient Variation 12.9 % (11.7-14.2); RDW Standard Deviation 42.2 fL (35.1-46.3); White Blood Cell Count 10.44 K/mm3 (4.00-11.30)
[2020-08-12 06:38] LABS: Anion Gap 5 mmol/L (6-16); Blood Urea Nitrogen 11 mg/dL (8-24); Bun/Creatinine Ratio 15.2 (12.0-20.0); CO2, Blood 28 mmol/L (21-32); Calcium, Blood 8.4 mg/dL (8.5-10.1); Chloride, Blood 102 mmol/L (98-108); Creatinine, Blood 0.72 mg/dL (0.40-1.00); Glomerular Filtration Rate >60 (60-); Glucose, Blood 188 mg/dL (70-99); International Normalized Ratio 1.22; Sodium, Blood 135 mmol/L (136-145)
--- NOTE | 2020-08-12 13:07 | NUR ---
DR. ISSA CALLED WITH ORDERS TO DISCONTINUE HEPARIN INFUSION AND TRANSITION TO ORAL MEDS. IV INFUSION IS STOPPED PER MD ORDER. PT CURRENTLY SLEEPING IN BED DENIES FURTHER NEEDS
--- NOTE | 2020-08-12 15:29 | NUR ---
SHIFT SUMMARY HAND OFF REPORT GIVEN TO JB. POD 1 FOR LAP OLMAN. PT AAO X4. ABD FIRM AND DISTENDED. PT IS PASSING FLATUS AND HAD A SMALL BOWEL MOVEMENT THIS AM. ABD IS SORE WHEN SITTING UP OR DOWN BUT PATIENT DECLINES PAIN MEDICATION. NO REPORT OF N/V. TOLERATING FULL ADA DIET WELL. AMBULATES IN ROOM WITH ASSISTANCE. PT IS CURRENTLY ON 2 L NC. CALL LIGHT WITHIN REACH.
--- NOTE | 2020-08-12 17:55 | NUR ---
REPORT RECEIVED FROM LUNA SHARMA. ASSUMED PT CARE AT ABOUT 9107
--- NOTE | 2020-08-13 03:59 | NUR ---
SHIFT SUMMARY POD2 LAP OLMAN, A/O X4, VSS, TOLERATING PO, VOIDING FREQUENTLY BUT PT REPORTS THIS TO BE NORMAL FOR HER, INDEPENDENT W/ YUSRA WALKER R/T L SIDE DEFICITS FROM PRIOR CVA, PAIN DOING MUCH BETTER PT HAS NOT NEEDED NARCOTICS TO HELP MANAGE IT. NO ACUTE EVENTS THIS SHIFT, PLAN TO DC IN THE MORNING. CALL LIGHT IN REACH, WILL CONTINUE TO MONITOR AND REPORT TO ONCOMING DAY RN.
[2020-08-13 04:38] LABS: International Normalized Ratio 1.32
--- NOTE | 2020-08-13 11:00 | NUR ---
O2 WAS PLACED FOR OXYGEN SATURATION OF 88% ON ROOM AIR WHILE PT WAS SLEEPING. PT DENIES USING OXYGEN AT HOME BUT REPORTS SHE HAS USED OXYGEN IN THE PAST AND IT WAS TAKEN AWAY BECAUSE SHE STOPPED USING IT. PT WAS PLACED ON 1L O2 VIA NC AND O2 SATURATION IMPROVED TO 91%.
--- NOTE | 2020-08-13 12:46 | NUR ---
CONTINUED NEED FOR SUPPLEMENTAL O2 PT HAS CONTINUED TO NEED 1-2L O2 TO MAINTAIN O2 SATURATION >90%. PT REPORTS SHE IS STILL SOB BUT IT IS HER BASELINE. SHE HAS SHALLOW BREATING. PT HAS BEEN ENCOURAGED AND ASSISTED TO USE INCENTIVE SPIROMETER. DR. NICHOLS NOTIFIED, HE REPORTED HE WOULD PLACE CHEST X-RAY AND PLAN TO DO HOME O2 EVAL. HOLD DISCHARGE AT THIS TIME.
--- NOTE | 2020-08-13 12:58 | NUR ---
RESP PT HAD COMPLAINTS OF SOB @ APPROX 0700. PT WAS VISIBLY SOB, RESPIRATIONS WERE AT 20 BPM, AND SHALLOW. PT DENIED CHEST TIGHTNESS/PAIN. PT STATED SHE WAS UNABLE TO CATCH HER BREATH AND THAT SHE COULD NOT TAKE A DEEP BREATH IN. PT STATED SHE USED TO WEAR O2 AT HOME BUT NO LONGER DOES DUE TO NO PCP. PT STATED OCCASSIONAL ALBUTEROL USE AT HOME FOR UNDIAGNOSED ASTHMA. PT O2 SAT WAS 86% ON RA. NS FARIDA ADDMINISTER 3L O2 VIA NC, REPOSITIONED PT TO HIGH FOWLERS AND INFORMED LUNA VALENZUELA. RT WAS CONTACTED BY NURSE VALENZUELA FOR A BREATHING TREATMENT. PT O2 SAT RAISED TO 97% ON 3L O2 VIA NC WITHIN [address] GREEN WAS NOTIFIED BY LUNA VALENZUELA. PT ATTEMPTED TO WEAN OF O2 AND O2 SATS DROPPED TO 88% WITHIN 5 MINUTES. RESPIRATORY THERAPY ADDMINISTERED 2 BREATHING TREATMENT PER DOCTORS ORDERS, PT RESPONDED WELL. PT IS CURRENTLY ON 1L O2 VIA NC.
--- NOTE | 2020-08-13 14:44 | NUR ---
DR. NICHOLS NOTIFIED THAT CHEST XRAY RESULTS ARE BACK.
--- NOTE | 2020-08-13 14:45 | NUR ---
DR. NICHOLS NOTIFIED OF CHEST XRAY RESULTS
--- NOTE | 2020-08-13 14:49 | NUR ---
PT'S NOTIFIED THAT DISCHARGE HAS BEEN CANCELLED FOR TODAY, SINCE UNABLE TO DC OXYGEN.
--- NOTE | 2020-08-13 17:05 | NUR ---
SHIFT SUMMARY PT HAS BEEN IN PLEASENT MOOD THROUGHOUT SHIFT. PT IS A&O X4. DURING THIS SHIFT NS FARIDA VISUALIZED PT STUGGLING TO GET OUT OF BED WITHOUT UTILIZING CALL LIGHT FOR ASSISTANCE. THE PT WAS EDUCATED OF THE RISK OF FALLING AND WORSTENING INJURY AND THE NEED FOR UTILIZATION OF THE CALL LIGHT FOR ASSISTANCE. THE PT DID EXPERIENCE SOME DYSPNEA DURING THE MORNING HOURS, SEE NOTE. PT STATED THAT SHE SUFFERS FROM A PROLAPSED BLADDER. PT HAS BEEN USING THE BEDSIDE COMODE FREQUENTLY THROUGHOUT SHIFT. PT RECIEVED LASIX FROM LUNA VALENZUELA @ 2619 PER PHYSICIAN ORDERS FOR MILD PULMONARY EDEMA PER IMAGING REPORTS. PT HAS VOIDED 900 ML SINCE ADMINISTRATION. PT SPOUSE IS CURRENTLY AT BEDSIDE. PT SPOUSE STATED THAT PT DOES NOT REGULARLY CHECK BLOOD GLUCOSE AT HOME. PT SPOUSE STATED PT GLUCOSE RUNS ABOUT 170 WHEN IT IS CHECKED. VSS. CALL LIGHT IS WITHIN REACH.
--- NOTE | 2020-08-13 19:07 | NUR ---
INHALER PT VERBALIZED THAT SHE OCCASIONALY USES HER DAUGHTERS INHALER FOR SOB AT HOME. PT EDUCATED ABOUT THE DANGERS OF TAKING MEDICATIONS THAT ARE NOT PRESCRIBED TO HER AND RECOMMENDED F/U W/ PCP FOR SOB.
--- NOTE | 2020-08-13 19:21 | NUR ---
SHIFT SUMMARY PT IS POD#[address] CARDENAS. PT HAS BEEN TOLERATING PO AND PASSING FLATUS. PT HAD EPISODE OF SOB THIS AM, CHEST XRAY SHOWED PULM EDEMA, PT GIVEN LASIX AND REPORTS BREATHING IS BETTER. PLAN TO WEAN O2. PT REPORTED TO SN IQBAL THAT SHE HAS ASTHMA AND TAKES AN INHALER AT HOME. UPON FURTHER QUESTIONING THIS EVENING, PT'S REPORTS SHE HAS NOT BEEN DIAGNOSED WITH ASTHMA AND USES HER DAUGHTERS ALBUTEROL INHALER OCCASIONALLY. PT HAS BEEN UP TO THE BSC FREQUENTLY THIS SHIFT, SHE REPORTS FREQUENT URINATION AT HOME R/T PROLAPSED BLADDER. PT'S REPORTS URINARY FREQUENCY IS MORE THAN AT HOME. PT HAS ALSO HAD MILD FORGETFULNESS, KENDELL RN NOTIFIED. BED ALARM/TAB ALARM HAS BEEN USED FOR SAFETY SINCE PT DOES NOT RELIABLY USE HER CALL LIGHT. PLAN FOR ECHO TOMORROW. DISCHARGE TODAY WAS CANCELLED R/T PULM EDEMA. PLAN TO ENCOURAGE MOBILIZATION SINCE PT'S BREATHING HAS IMPROVED. VSS. REPORT GIVEN TO KENDELL CARRASCO.
[2020-08-14 04:46] LABS: Anion Gap 5 mmol/L (6-16); Blood Urea Nitrogen 10 mg/dL (8-24); Bun/Creatinine Ratio 14.8 (12.0-20.0); CO2, Blood 31 mmol/L (21-32); Calcium, Blood 8.8 mg/dL (8.5-10.1); Chloride, Blood 99 mmol/L (98-108); Creatinine, Blood 0.68 mg/dL (0.40-1.00); Glomerular Filtration Rate >60 (60-); Glucose, Blood 174 mg/dL (70-99); Potassium, Blood 3.5 mmol/L (3.5-5.5); Sodium, Blood 135 mmol/L (136-145)
--- NOTE | 2020-08-14 04:52 | NUR ---
SHIFT SUMMARY POD3 LAP OLMAN, A/O X4, VSS, TOLERATING PO INTAKE, VOIDING FREEQUENTLY BUT WELL, NO C/O PAIN THIS SHIFT, LUNGS AND O2 SATS HAVE IMPROVED AND PT HAS AGAIN BEEN WEENED OFF 02. PT REPORTS BEING ON OXYGEN A YEAR AGO THOUGH THIS IS NOT REFLECTED IN HER H&P, PT REPORTS HAVING ASTHMA AND USING HER DAUGHTERS INHALE IN WHICH THIS IS ALSO NOT ON HER H&P. PT DOING WELL W/ TRANSFERING FROM BSC TO BED AND BACK. NO ACUTE EVENTS THIS SHIFT, CALL LIGHT IN REACH, WILL CONTINUE TO MONITOR AND [facility].
--- NOTE | 2020-08-14 08:51 | NUR ---
ECHOCARDIOGRAM COMPLETED
[2020-08-14] MEDS ORDERED: XARELTO20 MG PO (13:35)
[2020-08-14] MEDS ORDERED: METO50 PO (13:35)
[2020-08-14] MEDS ORDERED: LOSA25 PO (13:36)
[2020-08-14] MEDS ORDERED: FURO20 PO (13:36)
--- NOTE | 2020-08-14 14:06 | NUR ---
Brief visit this afternoon. Pt being discharge. Pt up ambulating in room with hemiwalker upon arrival. Engaged in brief therapeutic discussion regarding considering completing an advanced directive. Provided education on life sustaining treatments and each section to complete. Discussed the importance of appointing a healthcare international account representative. Ended visit so Pt can call her spouse. Spoke with Bedside RN Kristan and discussed case. Spoke with PT Lux and discussed case. Palliative Care will remain available.
[2020-08-14] MEDS ORDERED: HYDR1TAB94 PO (14:37)
--- NOTE | 2020-08-14 15:20 | NUR ---
DISCHARGE SUMMARY PT A&OX4, VSS, LEAVING FLOOR VIA WC WITH , TO GO HOME, WITH ALL PERSONAL POSSESSIONS INCLUDING DC PACKET, XARELTO COUPON, NORCO SCRIPT. DC INSTRUCTIONS PROVIDED. PT REP UNDERSTANDING THOSE INSTRUCTIONS INCLUDING FU ON FRIDAY WITH DR KRUSE, FU WITH DR ORDOÑEZ IN 1 MO, FU WITH DR CARDENAS IN 2 WKS, LEAVE STERIS IN PLACE, OK TO SHOWER. IV DC'D.
== END 2020-08-14 15:42 | disposition home or self-care (01) | DRG 417 ==
LOC: ER 06:44 → MEDS 10:38 → SURS 10:38
PROVIDERS: Emergency Medicine; Nurse Practitioner Acute Care; Pharmacist; Student in an Organized Health Care Education/Training Program; Surgery; ADMIT Hospitalist
PROC: 0FT44ZZ Resection of Gallbladder, Percutaneous Endoscopic Approach (ICD-10-PCS; principal; 2020-08-11 10:45)
DX: K80.01 Calculus of gallbladder with acute cholecystitis with obstruction (principal); J96.00 Acute respiratory failure, unspecified whether with hypoxia or hypercapnia; Z68.1 Body mass index [BMI] 19.9 or less, adult; I48.20 Chronic atrial fibrillation, unspecified; I69.354 Hemiplegia and hemiparesis following cerebral infarction affecting left non-dominant side; E66.2 Morbid (severe) obesity with alveolar hypoventilation; E11.9 Type 2 diabetes mellitus without complications; Z20.822 Contact with and (suspected) exposure to COVID-19; F32.9 Major depressive disorder, single episode, unspecified; G47.33 Obstructive sleep apnea (adult) (pediatric); I11.0 Hypertensive heart disease with heart failure; I50.9 Heart failure, unspecified; R09.02 Hypoxemia; E78.5 Hyperlipidemia, unspecified; Z88.0 Allergy status to penicillin; Z88.5 Allergy status to narcotic agent; Z88.6 Allergy status to analgesic agent; Z98.890 Other specified postprocedural states; Z90.89 Acquired absence of other organs; Z79.01 Long term (current) use of anticoagulants; Z79.84 Long term (current) use of oral hypoglycemic drugs; Z79.899 Other long term (current) drug therapy
CPT/HCPCS: 36415; 71045; 76705; 80048; 80053; 81001; 82947; 83690; 83735; 83880; 84484; 85025; 85610; 85730; 87086; 88304; 93005; 93010; 93306; 94640; 94760; 96365; 96375; 97110; 97116; 97162; 97166; 97535; 99285-25; A9270; J0696; J1644; J1940; J2185; J2370; J2405; J2550; J2704; J3010; J7030; J7120; U0004

== ENCOUNTER → 2020-10-16 | Outpatient (CLI) | payer MEDICARE, OTHER ==
[~2020-10-16] MED LIST changes: +FURO20 PO; +HYDR1TAB94 PO; +JANTOVEN2 MG; +JANTOVEN6 MG; +LEVEMIR FL100 UNIT/2 SC; +MELO7.5 PO; +XARELTO20 MG PO; +ZOLOFT25 MG PO
== END | disposition home or self-care (01) ==
LOC: LAB SHORT 17:46
DX: N39.0 Urinary tract infection, site not specified (principal)
CPT/HCPCS: 87077; 87086; 87186

== ENCOUNTER → 2021-03-01 | Outpatient (CLI) | payer MEDICARE, OTHER ==
[~2021-03-01] MED LIST changes: +ACET325 PO; +DILT180 PO; +LEVO750 PO; +TRIM100 PO; +VISBIOME 112.51 EACH PO; +XARELTO15 M1 PO; -XARELTO20 MG PO
== END ==
LOC: LAB SHORT 07:56 → LAB 07:56
DX: D48.5 Neoplasm of uncertain behavior of skin (principal)
CPT/HCPCS: 88305

== ENCOUNTER → 2021-08-01 | Outpatient (CLI) | payer MEDICARE, OTHER ==
[2021-08-01 17:54] LABS: BASOPHILS ABSOLUTE AUTO 0.05 K/mm3 (0.00-0.23); BASOPHILS PERCENT AUTO 1 % (0-2); EOSINOPHILS ABSOLUTE AUTO 0.26 K/mm3 (0.00-0.68); EOSINOPHILS PERCENT AUTO 3 % (0-6); Hematocrit 42.8 % (33.0-51.0); Hemoglobin 14.3 g/dL (11.5-16.0); IMMATURE GRAN ABSOLUTE AUTO 0.04 K/mm3 (0.00-0.10); IMMATURE GRAN PERCENT AUTO 0 % (0-1); LYMPHOCYTES ABSOLUTE AUTO 3.15 K/mm3 (0.84-5.20); LYMPHOCYTES PERCENT AUTO 34 % (21-46); MONOCYTES ABSOLUTE AUTO 0.72 K/mm3 (0.16-1.47); MONOCYTES PERCENT AUTO 8 % (4-13); Mean Corpuscular HGB 29.2 pg (26.0-34.0); Mean Corpuscular HGB Conc 33.4 g/dL (31.5-36.5); Mean Corpuscular Volume 88 fL (80-100); Mean Platelet Volume 10.7 fL (9.1-12.4); NEUTROPHILS ABSOLUTE AUTO 5.18 K/mm3 (1.96-9.15); NEUTROPHILS PERCENT AUTO 55 % (41-73); Platelet Count 249 K/mm3 (150-400); RDW Coefficient Variation 12.7 % (11.7-14.2); RDW Standard Deviation 41.1 fL (35.1-46.3); Red Blood Cell Count 4.89 M/mm3 (3.80-5.20)
[2021-08-01 19:14] LABS: Microalb/Creat Ratio UR, Rand 113.369 mg/g (0.000-30.000)
[2021-08-01 19:25] LABS: Alanine Aminotransfer (ALT/SGP 24 U/L (12-78); Albumin, Blood 3.4 g/dL (3.4-5.0); Albumin/Globulin Ratio 0.9 (0.8-1.8); Alk Phos 121 U/L (50-136); Anion Gap 9 mmol/L (6-16); Aspartate Aminotrans (AST/SGOT 15 U/L (12-37); Bilirubin, Total 1.1 mg/dL (0.1-1.0); Blood Urea Nitrogen 13 mg/dL (8-24); Bun/Creatinine Ratio 16.6 (12.0-20.0); CHOL/HDL RATIO 2.6; CO2, Blood 27 mmol/L (21-32); Calcium, Blood 9.4 mg/dL (8.5-10.1); Chloride, Blood 103 mmol/L (98-108); Cholesterol 148 mg/dL (50-200); Creatinine, Blood 0.78 mg/dL (0.40-1.00); Globulin, Blood 3.7 g/dL (2.2-4.0); Glomerular Filtration Rate >60 (60-); Glucose, Blood 177 mg/dL (70-99); HDL Cholesterol 57 mg/dL (>39); LDL/HDL RATIO 1.2; Low Density Lipoprotein Chol 67 mg/dL (0-110); Potassium, Blood 4.1 mmol/L (3.5-5.5); Sodium, Blood 139 mmol/L (136-145); Total Protein, Blood 7.1 g/dL (6.4-8.2); Triglycerides 120 mg/dL (30-160); Very Low Density Lipoprot Chol 24 mg/dL (6-32)
== END ==
LOC: LAB SHORT 16:17
PROVIDERS: Nurse Practitioner Family
DX: E11.9 Type 2 diabetes mellitus without complications (principal); E78.2 Mixed hyperlipidemia; Z51.81 Encounter for therapeutic drug level monitoring; F32.9 Major depressive disorder, single episode, unspecified; Z79.4 Long term (current) use of insulin
CPT/HCPCS: 80053; 80061; 82043; 82570; 83036; 84443; 85025

== ENCOUNTER → 2022-01-25 | Outpatient (CLI) | payer MEDICARE, OTHER ==
[2022-01-25 18:50] LABS: BASOPHILS ABSOLUTE AUTO 0.04 K/mm3 (0.00-0.23); BASOPHILS PERCENT AUTO 0 % (0-2); EOSINOPHILS ABSOLUTE AUTO 0.17 K/mm3 (0.00-0.68); EOSINOPHILS PERCENT AUTO 2 % (0-6); Hematocrit 43.6 % (33.0-51.0); Hemoglobin 15.1 g/dL (11.5-16.0); IMMATURE GRAN ABSOLUTE AUTO 0.03 K/mm3 (0.00-0.10); IMMATURE GRAN PERCENT AUTO 0 % (0-1); LYMPHOCYTES ABSOLUTE AUTO 3.16 K/mm3 (0.84-5.20); LYMPHOCYTES PERCENT AUTO 28 % (21-46); MONOCYTES ABSOLUTE AUTO 0.77 K/mm3 (0.16-1.47); MONOCYTES PERCENT AUTO 7 % (4-13); Mean Corpuscular HGB 30.4 pg (26.0-34.0); Mean Corpuscular HGB Conc 34.6 g/dL (31.5-36.5); Mean Corpuscular Volume 88 fL (80-100); Mean Platelet Volume 10.3 fL (9.1-12.4); NEUTROPHILS ABSOLUTE AUTO 7.23 K/mm3 (1.96-9.15); NEUTROPHILS PERCENT AUTO 63 % (41-73); Platelet Count 245 K/mm3 (150-400); RDW Coefficient Variation 12.9 % (11.7-14.2); RDW Standard Deviation 41.2 fL (35.1-46.3); Red Blood Cell Count 4.97 M/mm3 (3.80-5.20)
[2022-01-25 18:57] LABS: Bun/Creatinine Ratio 22.1 (12.0-20.0); Calcium, Blood 9.1 mg/dL (8.5-10.1); Creatinine, Blood 0.77 mg/dL (0.40-1.00); Potassium, Blood 4.2 mmol/L (3.5-5.5); Uric Acid, Blood 5.2 mg/dL (2.6-6.0)
== END | disposition home or self-care (01) ==
LOC: LAB SHORT 18:46 → LAB 18:46
PROVIDERS: Physician Assistant Medical
DX: M25.531 Pain in right wrist (principal)
CPT/HCPCS: 80048; 84550; 85025

== ENCOUNTER 2023-10-10 23:25 | Inpatient (IN) | payer OTHER ==
[~2023-10-10] VITALS: Ht 167.6 cm; Wt 88.5 kg
[~2023-10-10 23:25] MED LIST changes: +LANTUS SOL100 UNIT/1 SC; -LEVEMIR FL100 UNIT/2 SC
[2023-10-10 23:51] LABS: BASOPHILS ABSOLUTE AUTO 0.02 K/mm3 (0.00-0.23); BASOPHILS PERCENT AUTO 0 % (0-2); EOSINOPHILS PERCENT AUTO 0 % (0-6); Hematocrit 40.1 % (33.0-51.0); Hemoglobin 13.5 g/dL (11.5-16.0); IMMATURE GRAN ABSOLUTE AUTO 0.07 K/mm3 (0.00-0.10); IMMATURE GRAN PERCENT AUTO 1 % (0-1); LYMPHOCYTES ABSOLUTE AUTO 1.51 K/mm3 (0.84-5.20); LYMPHOCYTES PERCENT AUTO 11 % (21-46); MONOCYTES ABSOLUTE AUTO 0.42 K/mm3 (0.16-1.47); MONOCYTES PERCENT AUTO 3 % (4-13); Mean Corpuscular HGB 28.8 pg (26.0-34.0); Mean Corpuscular HGB Conc 33.7 g/dL (31.5-36.5); Mean Corpuscular Volume 86 fL (80-100); Mean Platelet Volume 10.7 fL (9.1-12.4); NEUTROPHILS PERCENT AUTO 86 % (41-73); Platelet Count 262 K/mm3 (150-400); RDW Coefficient Variation 12.5 % (11.7-14.2); RDW Standard Deviation 38.9 fL (35.1-46.3); Red Blood Cell Count 4.69 M/mm3 (3.80-5.20); White Blood Cell Count 13.92 K/mm3 (4.00-11.30)
[2023-10-11 00:02] LABS: International Normalized Ratio 1.02; Prothrombin Time Results 10.9 Sec (9.7-11.5)
[2023-10-11 00:09] LABS: Alanine Aminotransfer (ALT/SGP 17 U/L (12-78); Albumin, Blood 3.1 g/dL (3.4-5.0); Albumin/Globulin Ratio 0.7 (0.8-1.8); Alk Phos 124 U/L (50-136); Anion Gap 11 mmol/L (3-11); Aspartate Aminotrans (AST/SGOT 12 U/L (12-37); Bilirubin, Total 0.6 mg/dL (0.1-1.0); Blood Urea Nitrogen 20 mg/dL (8-24); Bun/Creatinine Ratio 30.7 (12.0-20.0); CO2, Blood 24 mmol/L (21-32); Calcium, Blood 8.6 mg/dL (8.5-10.1); Chloride, Blood 107 mmol/L (98-108); Creatinine, Blood 0.65 mg/dL (0.40-1.00); Globulin, Blood 4.3 g/dL (2.2-4.0); Glomerular Filtration Rate 87 (60-); Glucose, Blood 321 mg/dL (70-99); Magnesium, Blood 1.3 mg/dL (1.6-2.4); Potassium, Blood 4.2 mmol/L (3.5-5.5); Sodium, Blood 138 mmol/L (136-145); Thyroid Stimulating Hormone 0.542 uIU/mL (0.360-4.800); Total Protein, Blood 7.4 g/dL (6.4-8.2)
[2023-10-11] MEDS ORDERED: METO50ER PO (00:11)
[2023-10-11] MEDS ORDERED: LOSA50 PO (00:12)
[2023-10-11] MEDS ORDERED: RYBELSUS3 MG PO (00:12)
[2023-10-11] MEDS ORDERED: Magnesium Sulf 2 GM/Water 50ML 50 ML IV ONE (00:55)
[2023-10-11 01:35] LABS: Source, Urine Clean Catch
[2023-10-11 01:52] LABS: Bilirubin, Urine Neg (Neg); Blood, Urine 5+ (Neg); Glucose Qualitative, Urine 4+ (Neg); Ketones, Urine Neg (Neg); Leukocyte Esterase, Urine Neg (Neg); Nitrite, Urine Neg (Neg); Protein, Urine 2+ (Neg); Urobilinogen, Urine NORM (Normal)
[2023-10-11 02:01] LABS: Appearance, Urine Clear (Clear); Color, Urine Pale Yellow (P-Yellow)
[2023-10-11 02:03] LABS: Bacteria Few /hpf; Squamous Epithelial Cells Few /hpf (Few); White Blood Cells, Urine 0-2 /hpf (0-5)
[2023-10-11] MEDS ORDERED: Acetaminophen 325 MG TABLET PO PRN (04:15)
[2023-10-11] MEDS ORDERED: Acetaminophen 650 MG Supp PR PRN (04:15)
[2023-10-11] MEDS ORDERED: Lactated Ringer's 1,000 ML IV SCH (05:00)
[2023-10-11] MEDS ORDERED: RYBELSUS7 MG PO (05:02)
[2023-10-11 05:16] VITALS: BP 128/84
[2023-10-11] MEDS ORDERED: Insulin Regular 100 UNIT/ML 10ML Vial SC SCH (06:00)
[2023-10-11 06:35] LABS: CHOL/HDL RATIO 2.4; Cholesterol 131 mg/dL (50-200); HDL Cholesterol 54 mg/dL (>39); Low Density Lipoprotein Chol 52 mg/dL (0-110); Triglycerides 123 mg/dL (30-160); Very Low Density Lipoprot Chol 24 mg/dL (6-32)
[2023-10-11 07:27] VITALS: BP 142/58
[2023-10-11] MEDS ORDERED: Aspirin 81 MG Chew PO SCH (09:00)
[2023-10-11] MEDS ORDERED: Atorvastatin 40 MG Tab PO SCH (09:00)
[2023-10-11] MEDS ORDERED: Clopidogrel Bisulfate 75 MG Tab PO SCH (09:00)
--- NOTE | 2023-10-11 13:57 | NUR ---
STROKE ASSESSMENT, ALERT 0 LEVEL OF CONSCIOIUSNESSS 0 LEFT, GAZE NORMAL 0 , VISUAL 0, 1 FACIAL PALSY, PATIENT STRUGGLES WITH SPEECH,EXPRESSIVE APHASIA, LEFT MOTOR ARM DRIFT ARM WEAKNESS WITH DRIFT. PATIENT COULD NOT RAISE HER LEFT ARM OFF THE BED VERY HIGH, LEFT DRIFT NOTED 1. RIGHT ARM PATIENT WS ABLE TO LIFT ABOVE HER HEAD, NO DRIFT NOTED. LEFT HAND COULD NOT SQUEEZE WELL THE RIGHT HAND. THE LEFT HAND WAS GENERALLY WEAKER. THE LEFT ARM COULD NOT EXTEND OUT STRAIGHT. PATIENT WAS ABLE TO FOLLOW MY FINGER VERITCALLY AND HORIZONTALLY, PATIENT ABLE TO LIFT BOTH LEGS, LEFT LEG WAS SLIGHT HARDER FOR HER TO LIFT. NO SENSORY LOSS, PATIENT ABLE TO FEEL ON BOTH SIDES EQUALLY. MILD TO [id number] LOSS OF SPEECH AND FLUIDITY SLURRED MILD TRO MODERATE DYSARTHRIA
[2023-10-11 15:53] VITALS: BP 146/61
[2023-10-11] MEDS ORDERED: Rivaroxaban 10 MG Tab PO SCH (18:00)
--- NOTE | 2023-10-11 19:38 | NUR ---
PATIENT HAD A FEW RUN OF BRADYCARDIA. FOUND ONE OF THE CARDIAC DEVICES OFF. INFORMED PHYSICAN. REPLACED AND HEART WENT BACK INTO ORIGINAL RYTHMN. ATRIL FIBRILLATION.
[2023-10-11 20:23] VITALS: BP 182/85
[2023-10-11] MEDS ORDERED: Insulin Glargine-Yfgn 100 Unit/mL 3 ML SYR SC SCH (21:00)
[2023-10-12] MEDS ORDERED: Melatonin 5 MG Tablet PO PRN (00:05)
[2023-10-12 04:47] LABS: Hematocrit 38.3 % (33.0-51.0); Mean Corpuscular HGB 28.8 pg (26.0-34.0); Mean Corpuscular HGB Conc 33.9 g/dL (31.5-36.5); Mean Corpuscular Volume 85 fL (80-100); Mean Platelet Volume 10.7 fL (9.1-12.4); Platelet Count 222 K/mm3 (150-400); RDW Coefficient Variation 12.6 % (11.7-14.2); RDW Standard Deviation 38.6 fL (35.1-46.3); Red Blood Cell Count 4.52 M/mm3 (3.80-5.20); White Blood Cell Count 14.54 K/mm3 (4.00-11.30)
[2023-10-12 05:26] VITALS: BP 156/90
--- NOTE | 2023-10-12 05:44 | NUR ---
SHIFT SUMMARY PATIENT ALERT AND ORIENTED x4. ABLE TO MAKE NEEDS KNOWN TO STAFF. SPEECH MUMBLED. PATIENT WITH Hx OF MULTIPLE STROKES WITH DEFECITS. WEAKER STRENGTH ON LEFT SIDE OF BODY, SEEMS TO BE AT HER BASELINE PER PATIENT. VSS. PATIENT ON RA DURING THE NIGHT. PUREWICK AND ATTENDS IN PLACE, ADEQUATE OUTPUT. TOLERATING PO. TURNING SELF IN BED. NO OTHER CHANGES DURING THE NIGHT, WILL REPORT TO DAY SHIFT RN.
[2023-10-12] MEDS ORDERED: Insulin Regular 100 UNIT/ML 10ML Vial SC SCH (07:30)
[2023-10-12 15:03] VITALS: BP 141/77
--- NOTE | 2023-10-12 17:57 | NUR ---
SHIFT SUMMARY PATIENT ALERT AND ORIENTED TIMES FOUR. SOME DELAY IN SPEECH, EXPRESSIVE APHASIA, LEFT ARM WEAKNESS, ATRIAL FLUTTER 82 RATE, AMBULATION WITH ASSIST. RA,VSS.
[2023-10-12 20:09] VITALS: BP 168/70
[2023-10-13 04:25] VITALS: BP 181/134
[2023-10-13 04:31] VITALS: BP 180/110
[2023-10-13 05:00] LABS: Hematocrit 37.9 % (33.0-51.0); Hemoglobin 12.9 g/dL (11.5-16.0); Mean Corpuscular HGB 28.8 pg (26.0-34.0); Mean Corpuscular Volume 85 fL (80-100); Mean Platelet Volume 10.9 fL (9.1-12.4); Platelet Count 214 K/mm3 (150-400); RDW Coefficient Variation 12.4 % (11.7-14.2); RDW Standard Deviation 37.9 fL (35.1-46.3); Red Blood Cell Count 4.48 M/mm3 (3.80-5.20); White Blood Cell Count 11.31 K/mm3 (4.00-11.30)
[2023-10-13] MEDS ORDERED: Losartan Potassium 25 MG Tab PO SCH (05:00)
[2023-10-13 05:18] LABS: Calcium, Blood 8.5 mg/dL (8.5-10.1); Creatinine, Blood 0.71 mg/dL (0.40-1.00); Potassium, Blood 3.4 mmol/L (3.5-5.5)
--- NOTE | 2023-10-13 05:20 | NUR ---
PT A&OX4 AND ANSWERS QUESTIONS APPROPRIATELY. PT VOICES ANXIETY AT START OF SHIFT. MEDICATED PER EMAR. CBG TAKEN. BLOOD PRESSURE ELEVATED AND COZAR ORDERED. OTHER VSS, NO COMPLAINTS OF CP/PRESSURE OR SOB. PT SPENT MOST OF SHIFT IN BED WITH EYES CLOSED AND RESPIRATIONS EVEN AND UNLABORED. PT REPOSITIONED INDEPENDENTLY. NO ACUTE EVENTS AT THIS TIME. PROPER FALL PRECAUTIONS IN PLACE AND CALL LIGHT IN REACH.
[2023-10-13] MEDS ORDERED: Potassium Chloride 20 MEQ TabCR PO ONE (07:40)
[2023-10-13 07:41] VITALS: BP 166/104
[2023-10-13] MEDS ORDERED: Aspirin 81 MG Chew PO SCH (09:00)
[2023-10-13] MEDS ORDERED: ASPI81CH PO (15:00)
[2023-10-13] MEDS ORDERED: HUMULIN R100 UNIT/2 SC (15:01)
[2023-10-13] MEDS ORDERED: MELATONIN5 M1 PO (15:02)
--- NOTE | 2023-10-13 17:57 | NUR ---
PT AWAKE DURING SHIFT REPORT. VERY PLEASANT AND CO-OP. ADMITTED FOR CVA; CURRENT AND PREVIOUS CVA DEFICITS TO L SIDE. L ARM AND L LEG WEAK, BUT PT ABLE TO AMBULATE AROUND RM, TO BTHRM, AND PERFORM ADL'S. PT ABLE TO WORK WITH THERAPY TODAY AND D/C TO HOME. PT'S TO THIS AFTERNOON, WAITING FOR PT TO D/C. PT'S DAUGHTER HERE WELL TO ASSIST WITH BELONGINGS. PT ASSISTED OUT VIA W/C BY .
== END 2023-10-13 15:28 | disposition home health service (06) | DRG 65 ==
LOC: ER 23:25 → MEDS 23:26
PROVIDERS: Internal Medicine; Student in an Organized Health Care Education/Training Program; ADMIT Student in an Organized Health Care Education/Training Program
DX: I63.81 Other cerebral infarction due to occlusion or stenosis of small artery (principal); I69.354 Hemiplegia and hemiparesis following cerebral infarction affecting left non-dominant side; E11.9 Type 2 diabetes mellitus without complications; E78.5 Hyperlipidemia, unspecified; Z66 Do not resuscitate; I48.0 Paroxysmal atrial fibrillation; R29.810 Facial weakness; E83.42 Hypomagnesemia; R47.81 Slurred speech; F32.A Depression, unspecified; I65.22 Occlusion and stenosis of left carotid artery; Z79.01 Long term (current) use of anticoagulants; Z88.0 Allergy status to penicillin; Z88.5 Allergy status to narcotic agent; Z79.899 Other long term (current) drug therapy; Z79.4 Long term (current) use of insulin; Z79.2 Long term (current) use of antibiotics; Z90.89 Acquired absence of other organs; Z90.49 Acquired absence of other specified parts of digestive tract
CPT/HCPCS: 36415; 70450; 70496; 70498; 70551; 71046; 80048; 80053; 80061; 81001; 82947; 83036; 83735; 84443; 85025; 85027; 85610; 92610; 93005; 93010; 93306; 96365-59; 96366; 97110; 97116; 97162; 97166; 97530; 97535; 99285-25; A9270; G0378; J1815; J3475; J7120; Q9967

== ENCOUNTER → 2024-01-12 | Outpatient (CLI) | payer OTHER ==
[~2024-01-12] MED LIST changes: +ASPI81CH PO; +HUMULIN R100 UNIT/2 SC; +LOSA50 PO; +MELATONIN5 M1 PO; +METO50ER PO; +RYBELSUS3 MG PO; +RYBELSUS7 MG PO
== END ==
LOC: LAB SHORT 17:22 → LAB 17:22
DX: R32 Unspecified urinary incontinence (principal)
CPT/HCPCS: 87086